=== PATIENT | female | born 1930 | race Caucasian/White ===

== ENCOUNTER 2018-05-17 20:33 | Observation (INO) | payer OTHER ==
[~2018-05-17] VITALS: Ht 152.4 cm; Wt 49.4 kg
[~2018-05-17 20:33] MED LIST: FENO160T13 PO; HYDR25TA6 GTB; LISI10TA2 PO; [UNRECOGNIZED DRUG - OTHER] PO
[2018-05-18] VITALS (7 sets, daily range): BP systolic 103–170; BP diastolic 49–75; PULSE 67–95; RESP 18–20; Ht 152.4 cm; Wt 49.4 kg
[2018-05-18] MEDS ORDERED: SOD CHLORIDE 0.9% 1,000 ML IV STA (00:16)
[2018-05-18] MEDS ORDERED: MECLIZINE 12.5 MG TAB PO ONE (01:30)
[2018-05-18] MEDS ORDERED: ONDANSETRON 4 MG INJ IV PRN ×2 (02:30→03:00)
[2018-05-18] MEDS ORDERED: ACETAMINOPHEN 325 MG TAB PO PRN ×2 (02:30→03:00)
--- NOTE | 2018-05-18 02:35 | ERD ---
ER Documentation Chief Complaint Chief Complaint ANXIETY, DIZZINESS X'S 1 DAY HPI This is an 87-year-old female with a history of hypertension who presents the emergency room today for evaluation of multiple symptoms including heart palpitations, generalized weakness, dizziness, nausea for 1 days duration. The patient denies any shortness of breath currently but states that she was feeling slightly short of breath earlier today. The patient denies any abdominal pain denies any sick contacts and came to the ER for evaluation of her symptoms ROS All systems reviewed and are negative except as per history of present illness. Medications Home Meds Reported Medications Hydrochlorothiazide* (Hydrochlorothiazide*) 25 Mg Tab, 25 MG GTB, TAB 06/10/13 Fenofibrate, Micronized* (Fenofibrate*) 160 Mg Tablet, 160 MG PO 06/10/13 [Fludxetine ] No Conflict Check, 20 PO 06/10/13 Lisinopril* (Lisinopril*) 10 Mg Tablet, 10 MG PO DAILY 06/10/13 Allergies Allergies: Coded Allergies: No Known Allergy (Unverified , 06/10/13) PMhx/Soc Medical and Surgical Hx: pt denies Surgical Hx History of Surgery: No Anesthesia Reaction: No Hx Neurological Disorder: No Hx Respiratory Disorders: No Hx Cardiac Disorders: Yes (HIGH CHOLESTEROL ;HTN) Hx Psychiatric Problems: No Hx Miscellaneous Medical Probl: No Hx Alcohol Use: No Hx Substance Use: No Hx Tobacco Use: No Smoking Status: Never smoker Physical Exam Vitals Vital Signs Date Temp Pulse Resp B/P (MAP) Pulse Ox O2 O2 Flow FiO2 Time Delivery Rate 05/18/18 97.4 97 16 183/68 99 Room Air 00:02 (106) 05/17/18 97.6 120 18 187/79 95 20:34 (115) Physical Exam INITIAL VITAL SIGNS: Reviewed by me GENERAL: The patient is well developed and appropriate for usual state of health in no apparent distress HEENT: Pupils equal, round, and reactive to light. EOMI. There is no scleral icterus. NECK: C-spine is soft and supple, there is no meningismus. There is no cervical lymphadenopathy. LUNGS: Clear to auscultation bilaterally. There are no rales, wheezes or rhonchi. HEART: Regular rate and rhythm, no murmurs, clicks, rubs or gallops. ABDOMEN: Soft, non-tender, non-distended. There are bowel sounds in all four quadrants. No rebound or guarding. EXTREMITIES: There is no peripheral cyanosis or edema. No focal swelling or erythema. NEUROLOGICAL: The patient moves all four extremities with 5/5 strength. Cranial nerves II - XII are intact. Normal gait. Alert and oriented SKIN: There is no apparent rash or petechiae. HEME/LYMPHATIC: There is no evidence of excessive bruising or lymphedema. PSYCHIATRIC: The patient does not appear anxious or depressed. Result Diagram: 05/18/183905/18/1839 Results 24 hrs Laboratory Tests Test 05/18/18 00:40 White Blood Count 9.1 10^3/ul Red Blood Count 4.42 10^6/ul Hemoglobin 13.5 g/dl Hematocrit 40.8 % Mean Corpuscular Volume 92.3 fl Mean Corpuscular Hemoglobin 30.5 pg Mean Corpuscular Hemoglobin Concent 33.1 g/dl Red Cell Distribution Width 13.3 % Platelet Count 269 10^3/UL Mean Platelet Volume 10.2 fl Immature Granulocytes % 0.200 % Neutrophils % 54.1 % Lymphocytes % 33.9 % Monocytes % 11.2 % Eosinophils % 0.3 % Basophils % 0.3 % Nucleated Red Blood Cells % 0.0 /100WBC Immature Granulocytes # 0.020 10^3/ul Neutrophils # 4.9 10^3/ul Lymphocytes # 3.1 10^3/ul Monocytes # 1.0 10^3/ul Eosinophils # 0.0 10^3/ul Basophils # 0.0 10^3/ul Nucleated Red Blood Cells # 0.0 10^3/ul Sodium Level 138 mmol/L Potassium Level 3.9 mmol/L Chloride Level 98 mmol/L Carbon Dioxide Level 28 mmol/L Anion Gap 12 Blood Urea Nitrogen 16 mg/dl Creatinine 0.49 mg/dl Est Glomerular Filtrat Rate mL/min mL/min Glucose Level 107 mg/dl Calcium Level 10.2 mg/dl Troponin I 0.020 ng/ml Current Medications Medications Dose Sig/Hunter Start Time Status Last (Trade) Ordered Route PRN Stop Time Admin Dose Reason Admin Sodium 1,000 ml @ Q1H STAT 05/18/18 DC 05/18/18 Chloride 1,000 mls/hr IV 00:16 00:48 05/18/18 01:15 Meclizine 25 mg ONCE ONCE 05/18/18 DC 05/18/18 HCl PO 01:30 01:43 (Antivert) 05/18/18 01:31 Ondansetron 4 mg ER BRIDGE 05/18/18 HCl (Zofran PRN IV 02:30 Inj) NAUSEA AND/OR 05/19/18 02:29 VOMITING 650 mg ER BRIDGE 05/18/18 Acetaminophen PRN PO MILD 02:30 (Tylenol PAIN(1-3)OR 05/19/18 02:29 Tab) ELEVATED TEMP Procedures/MDM Chest X-ray 1V Interpreted by me: Soft Tissue: No acute abnormalities Bones: No acute abnormalities Mediastinum/Cardiac Silhouette/Lungs: [No acute abnormalities] CT brain without: No acute process EKG: Rate/Rhythm: [Normal Sinus Rhythm] QRS, ST, T-waves: Nonspecific ST abnormalities in the anterior lateral leads Impression: [Normal sinus rhythm with nonspecific ST abnormalities in the anterior leads, prolonged EKG This 87-year-old female presents to the ER for evaluation of multiple complaints including weakness, anxiety, heart palpitations. On my exam the patient is afebrile and nontoxic-appearing. Her EKG does show nonspecific ST abnormalities in the anterior lateral leads. CT the brain is normal. Chest x-ray is clear at this time and the first troponin is negative. Given this patient's age and symptoms this patient will benefit from inpatient hospitalization for serial troponins and possible cardiology consult. The patient will be placed in for admission at this time and will be placed on the telemetry floor under observation status. I have spoken to Dr. Merino who agrees to evaluate this patient on the floor Departure Diagnosis: Primary Impression: Anxiety Additional Impressions: Heart palpitations Dizziness Condition: CORBIN Kathleen DO May 18, 2018 02:35
[2018-05-18] MEDS ORDERED: MAGNESIUM HYDROXIDE 30ML CUP PO PRN (03:00)
[2018-05-18] MEDS ORDERED: LORAZEPAM 0.5 MG TAB PO PRN (03:00)
[2018-05-18] MEDS ORDERED: MECLIZINE 25 MG TAB PO PRN (03:00)
[2018-05-18] MEDS ORDERED: DOCUSATE SODIUM 100 MG CAP PO PRN (03:00)
[2018-05-18] MEDS ORDERED: BISACODYL 10 MG SUPP PR PRN (03:00)
[2018-05-18] MEDS ORDERED: NITROGLYCERIN (SL) 0.4 MG TAB SL PRN (03:00)
[2018-05-18] MEDS ORDERED: NACL 0.9% 3 ML SYG IV SCH (03:00)
[2018-05-18] MEDS ORDERED: hydrALAzine 20 MG INJ IV PRN (03:00)
[2018-05-18] MEDS ORDERED: SOD CHLORIDE 0.9% 100 ML ONE (03:28)
[2018-05-18] MEDS ORDERED: IOHEXOL 100 ML ONE (03:28)
[2018-05-18] MEDS: METOPROLOL 25 MG TAB PO SCH ×2 (03:50→08:17)
--- NOTE | 2018-05-18 04:19 | NUR ---
Patient Admitted Pt arrived to 6W Tele from ED. Pt A&O x 4. VSS, orthostatic vitals recorded. Tele monitor on, sinus rhythm on the monitor. Pt denies pain; no s/s of distress, resting in bed comfortably. Skin intact; pt refuses pictures. Fall precautions initiated with bed alarm on; fall wrist band applied, 'Walk With Me' Letter reviewed. Patient oriented to room, call light within reach, hourly rounding standards explained; pt instructed to call for assistance as needed. Pt clean and dry; all needs and concerns attended to. Admitting orders input by Dr. Merino. Will continue to monitor and assess.
--- NOTE | 2018-05-18 04:45 | NUR ---
Called CT and spoke to Cristhian regarding patient's STAT CT chest angio test. He stated that he would call transport and bring the patient down. Addendum: 05/18/18 at 0558 by JAMAR ARREAGA RN Called Cristhian in CT X [address] procedure. Cristhian stated that they received an ER patient and that transport was currently busy. Informed him that the procedure will now have to be held until after 7a, as the nurse charge rn has to give change of shift report.
--- NOTE | 2018-05-18 08:30 | NUR ---
PT CAME TO CT FOR CTA AND SAID SHE FELT NAUSEOUS. PT STATED THAT SHE WAS EATING HER BREAKFAST TRAY WHEN TRANSPORT CAME UP TO BRING TO DEPT. CALLED PLATE WORKER HELPER DON, PT SENT BACK TO FLOOR AND TO BE KEPT NPO FOR AT LEAST 3 HOURS. EXPLAINED TO PATIENT THAT SHE IS TO BE KEPT NPO AND WE WILL FIELD ASSESSOR AT LATER TIME. PT WAS AGREEABLE TO RETURN IN A FEW HOURS. ASKED IF CURRENTLY HAD SOB OR CHEST PAIN. PT STATED NO TO BOTH QUESTIONS.
[2018-05-18] MEDS ORDERED: LISINOPRIL 10 MG TAB PO SCH (09:00)
[2018-05-18] MEDS ORDERED: ASPIRIN 81 MG TAB PO SCH (09:00)
[2018-05-18] MEDS ORDERED: FAMOTIDINE 20 MG TAB PO SCH (09:00)
[2018-05-18] MEDS ORDERED: MECLIZINE 25 MG TAB PO SCH (10:00)
--- NOTE | 2018-05-18 12:10 | NUR ---
SENT TRANSPORT TO [facility] [place] TO BRING PT TO CT. PT REFUSED SCAN AND TOLD TRANSPORTER THAT HER MD SAID SHE DID NOT NEED EXAM AND THAT SHE WILL BE DISCHARGED TODAY. HOLD EXAM FOR NOW UNTIL UPDATE OR CANCELLED.
--- NOTE | 2018-05-18 12:26 | HP ---
Date/Time of Note Date/Time of Note DATE: 05/18/18 TIME: 12:25 Assessment/Plan VTE Prophylaxis Risk score (from Ns)>0 risk: 2 SCD applied (from Ns): Yes Pharmacological prophylaxis: NA/contraindicated Pharm contraindication: low risk/ambulating Lines/Catheters IV C[facility]ter Type (from [facility] Saline Lock Assessment/Plan Assessment/Plan 87-year-old female with: 1. Dizziness, vertigo, all symptoms consistent mostly with vertigo actually, patient also hypertensive and tachycardic upon arrival. Blood pressure much better control, chest x-ray and EKG within normal. She has refused CT angiogram. No other cardiac symptoms at all, cardiac enzymes negative x2. Third cardiac enzyme pending, discharge home later this afternoon if within normal. Meclizine as needed. Patient is advised to stay hydrated also. 2. Hypertension, significantly hypertensive on arrival, agree with lisinopril 20 mg daily, metoprolol has been added 25 mg p.o. twice daily. Patient is to follow-up with her primary care physician for further titration of blood pressure medication if needed. 3. Hyperlipidemia: Continue current medication Prophylaxis: Patient ambulatory and Pepcid for GI prophylaxis. Disposition: Patient was admitted on telemetry observation overnight, discharge planning home if third set of cardiac enzymes within normal. Follow-up with primary care physician next week. Result Diagram: 05/18/18 0040 05/18/18 0527 Results 24hrs Laboratory Tests Test 05/18/18 00:10 05/18/18 00:40 05/18/18 05:27 Thyroid Stimulating Hormone (TSH) 1.290 Free Thyroxine 1.45 White Blood Count 9.1 Red Blood Count 4.42 Hemoglobin 13.5 Hematocrit 40.8 Mean Corpuscular Volume 92.3 Mean Corpuscular Hemoglobin 30.5 Mean Corpuscular Hemoglobin Concent 33.1 Red Cell Distribution Width 13.3 Platelet Count 269 Mean Platelet Volume 10.2 Immature Granulocytes % 0.200 Neutrophils % 54.1 Lymphocytes % 33.9 Monocytes % 11.2 H Eosinophils % 0.3 Basophils % 0.3 Nucleated Red Blood Cells % 0.0 Immature Granulocytes # 0.020 Neutrophils # 4.9 Lymphocytes # 3.1 H Monocytes # 1.0 H Eosinophils # 0.0 Basophils # 0.0 Nucleated Red Blood Cells # 0.0 Sodium Level 138 138 Potassium Level 3.9 3.9 Chloride Level 98 102 Carbon Dioxide Level 28 27 Anion Gap 12 9 Blood Urea Nitrogen 16 14 Creatinine 0.49 0.50 Est Glomerular Filtrat Rate mL/min Glucose Level 107 115 Calcium Level 10.2 9.4 Troponin I 0.020 0.022 Total Bilirubin 0.3 Direct Bilirubin 0.00 Indirect Bilirubin 0.3 Aspartate Amino Transf (AST/SGOT) 35 Alanine Aminotransferase (ALT/SGPT) 16 Alkaline Phosphatase 39 L Creatine Kinase 157 Creatine Kinase Index 1.4 Creatinine Kinase MB (Mass) 2.18 Total Protein 6.7 Albumin 3.8 Globulin 2.90 Albumin/Globulin Ratio 1.31 Triglycerides Level 101 Cholesterol Level 179 LDL Cholesterol, Calculated 104 HDL Cholesterol 55 Cholesterol/HDL Ratio 3.2 HPI/ROS Admit Date/Time Admit Date/Time May 18, 2018 at 02:28 Hx of Present Illness Chief complaint: Dizziness, palpitations History of presenting illness: This is a 87-year-old female with history of hypertension, hyperlipidemia, previous episode of BPV few years ago who presented the emergency department with dizziness and was found to be hypertensive and tachycardic, sinus tachycardia. Patient reports that yesterday evening, she had an acute onset of dizziness, per description sounds more like vertigo as it was worse with movement and patient also had nausea while being transported via gurney which is more consistent with motion sickness/vertigo. She denies any chest pain, vomiting, diaphoresis, shortness of breath. Patient denies any previous cardiac history. She is compliant with her lisinopril which she clarified is taking 20 mg daily. Cardiac enzymes are negative x2, third 1 is pending. Orthostatics are negative, blood pressure is much better controlled now. If third cardiac enzymes remained normal, she will be discharged home with meclizine as needed for vertigo and metoprolol added for blood pressure control. ROS Constitutional: no complaints, improved Eyes: no complaints Cardiovascular: other (Palpitations) Gastrointestinal: no complaints Genitourinary: no complaints Musculoskeletal: no complaints Skin: no complaints Neurologic: dizziness, other (vertigo ) Endocrine: no complaints Lymphatic: no complaints Immunologic: no complaints PMH/Family/Social Past Medical History Hypertension Hyperlipidemia Benign positional vertigo Medications Current Medications Ondansetron HCl (Zofran Inj) 4 mg ER BRIDGE PRN IV NAUSEA AND/OR VOMITING; Start 05/18/18 at 02:30; Stop 05/19/18 at 02:29 Acetaminophen (Tylenol Tab) 650 mg ER BRIDGE PRN PO MILD PAIN(1-3)OR ELEVATED TEMP; Start 05/18/18 at 02:30; Stop 05/19/18 at 02:29 Lisinopril (Zestril) 20 mg DAILY PO Last administered on 05/18/18at 08:17; Admin Dose 20 MG; Start 05/18/18 at 09:00 Metoprolol Tartrate (Lopressor) 25 mg BID PO Last administered on 05/18/18at 08:17; Admin Dose 25 MG; Start 05/18/18 at 02:30 IV Flush (NS 3 ml) 3 ml PER PROTOCOL IV ; Start 05/18/18 at 03:00 Lorazepam (Ativan) 0.5 mg Q8H PRN PO ANXIETY; Start 05/18/18 at 03:00 Ondansetron HCl (Zofran Inj) 4 mg Q6H PRN IV NAUSEA AND/OR VOMITING Last administered on 05/18/18at 08:52; Admin Dose 4 MG; Start 05/18/18 at 03:00 Aspirin (Aspirin) 81 mg DAILY PO Last administered on 05/18/18at 08:16; Admin Dose 81 MG; Start 05/18/18 at 09:00 Nitroglycerin (Nitroglycerin (Sl Tab) 0.4 Mg) 1 tab Q5M PRN SL CHEST PAIN; Start 05/18/18 at 03:00 Acetaminophen (Tylenol Tab) 650 mg Q6H PRN PO PAIN LEVEL 1-3 OR FEVER; Start 05/18/18 at 03:00 Docusate Sodium (Colace) 100 mg Q12H PRN PO CONSTIPATION; Start 05/18/18 at 03:00 Magnesium Hydroxide (Milk Of Mag) 30 ml DAILY PRN PO CONSTIPATION; Start 05/18/18 at 03:00 Bisacodyl (Dulcolax Supp) 10 mg DAILY PRN AR CONSTIPATION; Start 05/18/18 at 03:00 Famotidine (Pepcid) 20 mg Q12 PO Last administered on 05/18/18at 08:16; Admin Dose 20 MG; Start 05/18/18 at 09:00 Hydralazine HCl (Apresoline) 10 mg Q8H PRN IV ELEVATED BLOOD PRESSURE; Start 05/18/18 at 03:00 Meclizine HCl (Antivert) 25 mg BID PO Last administered on 05/18/18at 09:43; Admin Dose 25 MG; Start 05/18/18 at 10:00 Coded Allergies: No Known Allergy (Unverified , 06/10/13) Past Surgical History Status post cholecystectomy remotely Status post hysterectomy with bilateral oophorectomy remotely Family History Significant Family History: no pertinent family hx Social History Alcohol Use: none Smoking Status: Former smoker Drug Use: none Exam/Review of Systems Vital Signs Vitals Vital Signs Date Temp Pulse Resp B/P (MAP) Pulse Ox O2 O2 Flow FiO2 Time Delivery Rate 05/18/18 69 12:22 05/18/18 98.3 18 120/58 99 11:53 (78) 05/18/18 Room Air 03:34 Intake and Output 05/17/18 05/17/18 05/18/18 1414:59 22:59 06:59 IntakeIntake Total 150 ml BalanceBalance 150 ml Exam Constitutional: alert, oriented, well developed Respiratory: clear to auscultation, normal air movement Cardiovascular: regular rate and rhythm, nl pulses Gastrointestinal: soft, non-tender Musculoskeletal: nl extremities to inspection, nl gait and stance Extremities: normal pulses Neurological: SU[employer] II-XII intact, nl mental status, nl speech, nl strength Additional Comments EKG: Sinus rhythm, no ST or T wave abnormalities seen. PROCEDURE: Portable chest x-ray. CLINICAL INDICATION: Chest pain. TECHNIQUE: Portable AP view of the chest. COMPARISON: 06/10/2013. FINDINGS: No pulmonary edema or conolidation is identified. The cardiac silhouette is magnified. There are aortic calcifications. No pleural effusion is seen. There is no pneumothorax. IMPRESSION: No evidence of acute cardiopulmonary disease. Aortic atherosclerosis. RPTAT: HTAR .Moe Venegas MD, Date Time Electronically viewed and signed by .Moe Venegas MD, on 05/18/2018 01:19 .R/ PROCEDURE: CT BRAIN WITHOUT CONTRAST CLINICAL INDICATION: 87-year-old female with altered mental status. TECHNIQUE: The study was performed utilizing [employer] VCT 64-slice CT scanner. Direct axial sections were obtained from the foramen magnum to the vertex without the use of intravenous contrast material. Sagittal and coronal reformations were obtained. One or more the following dose reduction techniques were utilized: automated exposure control, adjustment of the mA and/or kV according to patient's size and/or use of iterative reconstruction technique. DICOM images are available. The images were viewed on a PACS workstation. CTD/vol = 36.5 mGy; Total Exam DLP = 634.2 mGy-cm. COMPARISON: CT brain June 10, 2013. FINDINGS: There is moderate degree of diffuse cortical and central atrophy with compensatory ventricular enlargement. There is no evidence for mass effect or midline shift. There are periventricular areas of decreased density consistent with microangiopathic ischemic changes. There is no evidence for acute intra or extra-axial blood. Calcifications are seen within the intracranial carotid arteries bilaterally. The bony calvarium is intact. The partially visualized paranasal sinuses and mastoid air cells are without significant abnormal soft tissue. IMPRESSION: 1. Moderate diffuse atrophy. 2. Microangiopathic ischemic changes. 3. Vascular calcifications. .Abdi Temple MD, MD Date Time Electronically viewed and signed by .Abdi Temple MD, on 05/18/2018 01:42 MARIELLE CALDERON May 18, 2018 12:26
--- NOTE | 2018-05-18 12:27 | NUR ---
Pt refused CTA, risk of refusing diagnostic test is given to the pt. Pt verbalized understanding. Dr Merino is notified. will monitor.
[2018-05-18] MEDS ORDERED: LISI-471 PO (12:35)
--- NOTE | 2018-05-18 12:48 | PDOCDIS ---
Discharge Instructions CONDITION [id number] Patient Condition: [id number] Stable HOME CARE INSTRUCTIONS: [id number] Diet Instructions: [id number] Low Fat /Cholesterol ACTIVITY: [id number] Activity Restrictions: [id number] Slowly Increase Activity FOLLOW UP/APPOINTMENTS Follow-up Plan Follow-up with primary care physician within 1 week. MARIELLE CALDERON May 18, 2018 12:48
[2018-05-18] MEDS ORDERED: METO25TA4 PO (12:49)
--- NOTE | 2018-05-18 15:48 | NUR ---
DC instructions are given to the pt and pt's friend who will be helping the pt with medication at home. Pt and the friend verbalized understanding of given instructions. Pt received her prescription for new blood pressure medication, Talked to Dr Merino and gave pt's preferred Pharmacy information for necessary prescription. IV access was removed, pt left the unit via wheelchair accompanied with friend.
--- NOTE | 2018-05-19 15:18 | RADRPT ---
Echocardiogram Report Patient Name: ADRYANSeptember Gender: Female Date: 1930 Study Date: 18-May-2018 Smog Technician: Dale Sanchez RDCS Location: 616-A Ref. Physician: SUDHA CALDERON Quality: Technically Difficult Study Procedures: Transthoracic echocardiogram with complete 2D, M-Mode, and doppler examination. Indications: Evaluate Left Ventricular function. 2D/M Mode Doppler Measurement Value Normal Ranges Measurement Value Normal Ranges LVIDd 2D 2.4 3.5 - 5.6 cm AV Peak Jw 1.4 m/sec LVIDs 2D 1.6 2.1 - 4.1 cm AV Peak PG 8.0 mmHg LVPWd 2D 0.7 0.6 - 1.1 cm LVOT Mean Jw 0.8 m/sec IVSd 2D 0.9 0.6 - 1.1 cm LVOT Mean PG 3.0 mmHg AoR Diam 2D 2.0 2.0 - 3.7 cm LVOT Peak Jw 1.2 m/sec LA/Ao 2D 2 0 - 1 LVOT Peak PG 6.0 mmHg LA Dimen 2D 3.0 2.3 - 4.0 cm MV E Peak Jw 0.5 m/sec MV A Peak Jw 1.1 m/sec MV E/A 0.4 MV Decel Time 201 msec Lat E` Jw 0.1 m/sec Lateral E/E` 7.9 MV E/A 0.4 Findings Left Ventricle: Overall, normal left ventricular systolic function. Not all segments visualized. Normal left ventricular cavity size. Normal left ventricular wall thickness. Ejection fraction is visually estimated at 60 %. Tissue Doppler/Mitral Doppler indices are consistent with impaired relaxation (Stage I diastolic dysfunction). Right Ventricle: Normal right ventricular size. Normal right ventricular systolic function. Left Atrium: The left atrium is normal in size. Right Atrium: The right atrium is normal in size. Mitral Valve: Normal appearance of the mitral valve. Trace mitral regurgitation. Aortic Valve: No significant aortic stenosis or insufficiency. Aortic valve not well visualized. Tricuspid Valve: Normal appearance of the tricuspid valve. There is mild tricuspid regurgitation. Pulmonic Valve: Pulmonic valve not well visualized. Pericardium: Normal pericardium with no significant pericardial effusion. Aorta: Normal aortic root. IVC: Normal size and normal respiratory collapse consistent with normal right atrial pressure. Conclusions Overall, normal left ventricular systolic function. Not all segments visualized. Normal left ventricular cavity size. Normal left ventricular wall thickness. Ejection fraction is visually estimated at 60 %. Tissue Doppler/Mitral Doppler indices are consistent with impaired relaxation (Stage I diastolic dysfunction). Normal right ventricular size. Normal right ventricular systolic function. The left atrium is normal in size. The right atrium is normal in size. There is mild tricuspid regurgitation. No significant aortic stenosis or insufficiency. Trace mitral regurgitation. Normal pericardium with no significant pericardial effusion. Electronically Signed By: Klever Irene 19-May-2018 15:17:31 -0800 Patient Name: СВЕТЛАНА CORNELIUS Study Date: 18-May-2018 [id number]
== END 2018-05-18 16:05 | disposition home or self-care (01) ==
LOC: E/R 20:33 → 6WM 05-18 02:28
PROVIDERS: ADMIT Internal Medicine; ATTEND Internal Medicine
DX: R53.1 Weakness (principal); F41.9 Anxiety disorder, unspecified; I10 Essential (primary) hypertension; E78.5 Hyperlipidemia, unspecified; R00.2 Palpitations
CPT/HCPCS: 36415; 70450; 71045; 80048; 80053; 80061; 82550; 82553; 84439; 84443; 84484; 85025; 93005; 93306; 96360; 96361; 99285; G0378; J2405; J7030; Q9967

== ENCOUNTER 2018-08-22 18:48 | Emergency (ER) | payer OTHER ==
[~2018-08-22] VITALS: Ht 152.4 cm; Wt 49.0 kg
[~2018-08-22 18:48] MED LIST changes: -HYDR25TA6 GTB; +LISI-471 PO; -LISI10TA2 PO; +METO25TA4 PO
[2018-08-22 18:53] VITALS: Ht 152.4 cm; Wt 49.0 kg
[2018-08-22] MEDS ORDERED: SOD CHLORIDE 0.9% 1,000 ML IV STA (18:55)
--- NOTE | 2018-08-22 20:11 | ERD ---
ER Documentation Chief Complaint Chief Complaint weak/dizzy increasing in severity x 3 days. no pain. HPI This is an 87-year-old female with past medical history of hypertension that presents to the emergency department with weakness and dizziness for the past 3 days. The patient indicates the dizziness has been intermittent. She indicates the dizziness is worse when she is standing and better when she lies supine. She does not complain of headache. She had no changes in vision. She said no fevers or shaking or chills. She denies any chest pain and no shortness of breath at rest or exertion. She indicates that the dizziness sniffily worsened just prior to arrival where she felt as though she was going to pass out. She however denies any complete transient loss of consciousness. She states she is never had any similar symptoms in the past. ROS All systems reviewed and are negative except as per history of present illness. Medications Home Meds Active Scripts Cephalexin* (Keflex*) 500 Mg Capsule, 500 MG PO QID for 10 Days, CAP Prov:ELMER MENDIOLA MD 08/22/18 Meclizine Hcl* (Antivert*) 12.5 Mg Tab, 12.5 MG PO Q6H PRN for DIZZINESS, #20 TAB Prov:ELMER MENDIOLA MD 08/22/18 Reported Medications Fluoxetine Hcl* (Fluoxetine Hcl*) 20 Mg Capsule, 20 MG PO DAILY, CAP 08/22/18 Fenofibrate, Micronized* (Fenofibrate*) 160 Mg Tablet, 160 MG PO DAILY, TAB 08/22/18 Lisinopril* (Lisinopril*) 20 Mg Tablet, 20 MG PO DAILY, #30 TAB 08/22/18 Discontinued Reported Medications Lisinopril* (Lisinopril*) 20 Mg Tablet, 20 MG PO DAILY, #30 TAB 05/18/18 Fenofibrate, Micronized* (Fenofibrate*) 160 Mg Tablet, 160 MG PO 06/10/13 [Fludxetine ] No Conflict Check, 20 PO 06/10/13 Discontinued Scripts Metoprolol Tartrate* (Lopressor*) 25 Mg Tablet, 25 MG PO BID, #60 TAB 3 Refills Prov:MARIELLE CALDERON F 05/18/18 Allergies Allergies: Coded Allergies: No Known Allergy (Unverified , 08/22/18) PMhx/Soc History of Surgery: No (Hysterectomy, Cholecystectomy, Appendectomy) Anesthesia Reaction: No Hx Neurological Disorder: No Hx Respiratory Disorders: No Hx Cardiac Disorders: Yes (HTN) Hx Psychiatric Problems: Yes (Depression) Hx Miscellaneous Medical Probl: No Hx Alcohol Use: No Hx Substance Use: No Hx Tobacco Use: No Smoking Status: Never smoker Physical Exam Vitals Vital Signs Date Temp Pulse Resp B/P (MAP) Pulse Ox O2 O2 Flow FiO2 Time Delivery Rate 08/22/18 95 17 120/86 98 Room Air 22:26 (97) 08/22/18 105 17 154/55 96 Room Air 19:59 (88) 95 107/73 (84) 93 121/99 (106) 08/22/18 98.8 98 18 168/74 99 18:53 (105) Physical Exam Constitutional:Well-developed. Well-nourished. HEENT:Normocephalic. Atraumatic.Pupils were equal round reactive to light. Dry mucous membranes.No tonsillar exudates. Neck: No nuchal rigidity. No lymphadenopathy. No posterior cervical spine tenderness or step-offs. Respiratory: Not using accessory muscles of respiration.Lungs were clear to auscultation bilaterally. No rhonchi. No rales. No wheezing. Cardiovascular: Regular rate regular rhythm.No murmurs. No rubs were apprecia robert.S1, S2 normal. Distal pulses are palpable 2+ bilaterally. GI: Abdomen was soft. Nontender. Non Distended. No pulsatile abdominal masses or bruits. No rebound. No guarding. Bowel sounds were present and normal. Muscle skeletal: Full range of motion of both the upper and lower extremities bilaterally.Normal muscle tone.No assymetrical calf tenderness or swelling. Skin: No petechia, no purpura. No lesions on the palms or the soles of the feet. No maculopapular rash. NEURO: Patient was alert, awake, orientated x3.No facial droop. Gait observed and normal with no ataxia.Speech had regular rate and rhythm. No focal neurological deficits. No nystagmus Result Diagram: 08/22/18192508/22/181925 Results 24 hrs Laboratory Tests Test 08/22/18 19:26 White Blood Count 7.0 10^3/ul Red Blood Count 4.04 10^6/ul Hemoglobin 12.4 g/dl Hematocrit 37.9 % Mean Corpuscular Volume 93.8 fl Mean Corpuscular Hemoglobin 30.7 pg Mean Corpuscular Hemoglobin Concent 32.7 g/dl Red Cell Distribution Width 13.5 % Platelet Count 248 10^3/UL Mean Platelet Volume 10.2 fl Immature Granulocytes % 0.300 % Neutrophils % 63.3 % Lymphocytes % 22.2 % Monocytes % 13.4 % Eosinophils % 0.4 % Basophils % 0.4 % Nucleated Red Blood Cells % 0.0 /100WBC Immature Granulocytes # 0.020 10^3/ul Neutrophils # 4.5 10^3/ul Lymphocytes # 1.6 10^3/ul Monocytes # 0.9 10^3/ul Eosinophils # 0.0 10^3/ul Basophils # 0.0 10^3/ul Nucleated Red Blood Cells # 0.0 10^3/ul Prothrombin Time 12.5 Sec Prothrombin Time Ratio 1.0 INR International Normalized Ratio 0.92 Activated Partial Thromboplast Time 26.8 Sec Urine Color STRAW Urine Clarity CLEAR Urine pH 7.0 Urine Specific [place] 1.008 Urine Ketones NEGATIVE mg/dL Urine Nitrite NEGATIVE mg/dL Urine Bilirubin NEGATIVE mg/dL Urine Urobilinogen NEGATIVE mg/dL Urine Leukocyte Esterase 1+ Eliot/ul Urine Microscopic RBC 0 /HPF Urine Microscopic WBC 20 /HPF Urine Squamous Epithelial Cells FEW /HPF Urine Bacteria FEW /HPF Urine Hemoglobin NEGATIVE mg/dL Urine Glucose NEGATIVE mg/dL Urine Total Protein NEGATIVE mg/dl Sodium Level 140 mmol/L Potassium Level 4.5 mmol/L Chloride Level 103 mmol/L Carbon Dioxide Level 28 mmol/L Anion Gap 9 Blood Urea Nitrogen 21 mg/dl Creatinine 0.55 mg/dl Est Glomerular Filtrat Rate mL/min mL/min Glucose Level 109 mg/dl Calcium Level 11.0 mg/dl Total Bilirubin 0.1 mg/dl Direct Bilirubin 0.00 mg/dl Indirect Bilirubin 0.1 mg/dl Aspartate Amino Transf (AST/SGOT) 25 IU/L Alanine Aminotransferase (ALT/SGPT) 12 IU/L Alkaline Phosphatase 33 IU/L Troponin I < 0.012 ng/ml B-Type Natriuretic Peptide 733 PG/ML Total Protein 7.5 g/dl Albumin 4.3 g/dl Globulin 3.20 g/dl Albumin/Globulin Ratio 1.34 Current Medications Medications Dose Sig/Hunter Start Time Status Last (Trade) Ordered Route PRN Stop Time Admin Dose Reason Admin Sodium 1,000 ml @ Q1H STAT 08/22/18 DC 08/22/18 Chloride 1,000 mls/hr IV 18:55 19:40 08/22/18 19:54 Meclizine 25 mg ONCE ONCE 08/22/18 DC 08/22/18 HCl PO 20:30 20:27 (Antivert) 08/22/18 20:31 Ceftriaxone 50 ml @ ONCE ONCE 08/22/18 DC 08/22/18 Sodium 100 mls/hr IVPB 21:30 21:33 08/22/18 21:59 Procedures/MDM This patient was seen and evaluated by myself. The patient presented to the emergency department complaining of dizziness. My differential diagnosis included but was not limited to hypovolemia, myocardial infarction, pulmonary embolism, hypoglycemia, hypoxia, anemia, vasovagal episode, hypothyroidism, anxiety, peripheral or central vertigo. The patient was placed on a pvc monitor, continuous pulse oximetry and IV access established by nursing staff. The patient was given a liter bolus of normal saline as she did show signs of clinical dehydration. The patient also had a urinary tract infection was given ceftriaxone. I obtained a CT scan the patient said there is no intracerebral hemorrhage mass-effect or midline shift. The patient no severe electrolyte abnormalities. 12 Lead EKG tracing ordered and reviewed by myself showed: Normal sinus rhythm of 95 bpm and no arrhythmia. MD interval normal. QRS duration normal. No ST segment elevation No ST segment depression. No changes consistent with acute ischemia. As obtained a chest radiograph which showed no evidence of infiltrates. Observation Note: Time: 4 hours Family Hx: No Hypertension Evaluation: Multiple exams showed improving symptoms and no evidence of worsening of her symptoms. She had received Antivert and see if this improved her dizziness as while she was in the emergency department she did feel the sensation as though the room was spinning around her. Again the patient did not have any nystagmus. I spoke with the patient in length and offered her a trial of admission to the hospital but she stated she would prefer to be discharged. I spoke with the [place] physician Dr. Russell who indicated he would arrange for outpatient follow-up for the patient. She was sent home with Keflex. Her orthostatics were negative. Departure Diagnosis: Primary Impression: Dizziness Additional Impression: Urinary tract infection Urinary tract infection type: acute cystitis Hematuria presence: without hematuria Qualified Codes: N30.00 - Acute cystitis without hematuria Condition: Serious ELMER MENDIOLA MD Aug 22, 2018 20:11
[2018-08-22] MEDS ORDERED: MECLIZINE 12.5 MG TAB PO ONE (20:30)
[2018-08-22] MEDS ORDERED: LISI-471 PO (20:42)
[2018-08-22] MEDS ORDERED: FENO160T13 PO (20:43)
[2018-08-22] MEDS ORDERED: FLUO20CA22 PO (20:44)
[2018-08-22] MEDS ORDERED: CEFTRIAXONE 1 GM/50 ML (PMX) 50 ML IVPB ONE (21:30)
[2018-08-22] MEDS ORDERED: CEPH-443 PO (22:19)
[2018-08-22] MEDS ORDERED: MECL12.574 PO (22:19)
[2018-08-22 22:26] VITALS: BP 120/86; PULSE 95; RESP 17
== END 2018-08-22 22:28 | disposition home or self-care (01) ==
LOC: E/R 18:48
DX: R42 Dizziness and giddiness (principal); N30.00 Acute cystitis without hematuria; I10 Essential (primary) hypertension; R07.9 Chest pain, unspecified
CPT/HCPCS: 70450; 71045; 80053; 81001; 83880; 84484; 85025; 85610; 85730; 87040; 87086; 93005; 96374; 99285; J0696; J7030

== ENCOUNTER 2018-09-08 09:26 | Emergency (ER) | payer OTHER ==
[~2018-09-08] VITALS: Ht 152.4 cm; Wt 49.1 kg
[~2018-09-08 09:26] MED LIST changes: +CEPH-443 PO; +FLUO20CA22 PO; +MECL12.574 PO; -METO25TA4 PO; -[UNRECOGNIZED DRUG - OTHER] PO
[2018-09-08 09:36] VITALS: Ht 152.4 cm; Wt 49.1 kg
[2018-09-08] MEDS ORDERED: MECLIZINE 12.5 MG TAB PO ONE ×2 (10:00→12:30)
[2018-09-08] MEDS ORDERED: ARIP2TAB9 ORAL (11:02)
[2018-09-08 11:22] VITALS: BP 139/55; PULSE 85; RESP 20
[2018-09-08] MEDS ORDERED: MECL12.574 PO (12:14)
[2018-09-08] MEDS ORDERED: ONDA4TAB14 PO (12:14)
--- NOTE | 2018-09-08 12:25 | ERD ---
ER Documentation Chief Complaint Chief Complaint Pt. ASHLEY FOUNTAIN due to dizziness, acci OD on prozac@11pm, "Roughly 10 tabs" HPI This is a 87-year-old female who said she took about 6-10 extra Prozac last night. She said her Prozac pills are mixed in a bowl with M&Ms and she was eating the candy and the Prozac at the same time. She says she did not realize this until this morning. She is this morning she is having the sensation of the room is spinning that occurs worse when she is moving her head. She has a history of vertigo and this is exactly the same as prior symptoms. No headache no focal neurological complaints of numbness weakness speech change visual change or difficulty swallowing. She has no chest pain or shortness of breath. She said the spinning makes her nauseated but no vomiting ROS All systems reviewed and are negative except as per history of present illness. Medications Home Meds Active Scripts Ondansetron (Ondansetron Odt) 4 Mg Tab.rapdis, 4 MG PO Q6H PRN for NAUSEA AND/OR VOMITING, #10 TAB Prov:HUGH HI DO 09/08/18 Meclizine Hcl* (Antivert*) 12.5 Mg Tab, 25 MG PO Q6H PRN for DIZZINESS, #20 TAB Prov:HUGH HI DO 09/08/18 Reported Medications Aripiprazole (Aripiprazole) 2 Mg Tablet, 1 TAB ORAL DAILY 09/08/18 Fluoxetine Hcl* (Fluoxetine Hcl*) 20 Mg Capsule, 20 MG PO DAILY, CAP 08/22/18 Fenofibrate, Micronized* (Fenofibrate*) 160 Mg Tablet, 160 MG PO DAILY, TAB 08/22/18 Lisinopril* (Lisinopril*) 20 Mg Tablet, 20 MG PO DAILY, #30 TAB 08/22/18 Discontinued Scripts Cephalexin* (Keflex*) 500 Mg Capsule, 500 MG PO QID for 10 Days, CAP Prov:ELMER MENDIOLA MD 08/22/18 Meclizine Hcl* (Antivert*) 12.5 Mg Tab, 12.5 MG PO Q6H PRN for DIZZINESS, #20 TAB Prov:ELMER MENDIOLA MD 08/22/18 Allergies Allergies: Coded Allergies: No Known Allergy (Unverified , 08/22/18) PMhx/Soc History of Surgery: No (Hysterectomy, Cholecystectomy, Appendectomy) Anesthesia Reaction: No Hx Neurological Disorder: No Hx Respiratory Disorders: No Hx Cardiac Disorders: Yes (HTN) Hx Psychiatric Problems: Yes (Depression) Hx Miscellaneous Medical Probl: No Hx Alcohol Use: No Hx Substance Use: No Hx Tobacco Use: No Smoking Status: Never smoker FmHx Family History: No coronary disease Physical Exam Vitals Vital Signs Date Temp Pulse Resp B/P (MAP) Pulse Ox O2 O2 Flow FiO2 Time Delivery Rate 09/08/18 85 20 139/55 97 Room Air 11:22 (83) 09/08/18 97.5 84 20 149/53 97 09:36 (85) Physical Exam Const: Well-developed, well-nourished Head: Atraumatic, normocephalic Eyes: Normal Conjunctiva, PERRLA, EOMI, normal sclera, no nystagmus ENT: Normal External Ears, Nose and Mouth, moist mucus membranes. Neck: Full range of motion. No meningismus, no lymphadenopathy. Resp: Clear to auscultation bilaterally, no wheezing, rhonchi, rales Cardio: Regular rate and rhythm, no murmurs, S1 S2 present Abd: Soft, non tender x 4, non distended. Normal bowel sounds, no guarding or rebound, no pulsitile abdominal masses or bruits Skin: No petechiae or rashes, no ecchymosis , no maculopapular rash Back: No midline or flank tenderness Ext: No cyanosis, or edema, FROM x 4, normal inspection, neurovascularly intact x 4, if she moves her head to the left she gets severe vertigo Neur: Awake and alert, STR 5/5 x 4, sensation intact x 4, no focal findings, cerebellum intact Psych: Normal Mood and Affect Results 24 hrs Current Medications Medications Dose Sig/Hunter Start Time Status Last (Trade) Ordered Route PRN Stop Time Admin Dose Reason Admin Meclizine 25 mg ONCE ONCE 09/08/18 DC 09/08/18 HCl PO 10:00 09:57 (Antivert) 09/08/18 10:01 Meclizine 25 mg ONCE ONCE 09/08/18 HCl PO 12:30 (Antivert) 09/08/18 12:31 Procedures/MDM Patient: ROSS,[birth year]: 1930 Age: 87 Sex: F MR #: [id number] DOS: 09/08/18 0952 Ordering MD: HUGH HI DO Location: E/R Room/Bed: PROCEDURE: CT head without intravenous contrast CLINICAL INDICATION: Headaches. COMPARISON: CT brain 08/22/2018. TECHNIQUE: Axial CT images from skull base to vertex with coronal and sagittal reformats. DOSE: The estimated administered radiation dose was CTDI vol = 38.84 mGy. DLP = 634.23 mGy-cm. One or more of the following dose reduction techniques were used: automated exposure control, adjustment of the mA and/or kV according to patient size, or use of iterative reconstruction. DICOM images are available. FINDINGS: Parenchyma: No acute hemorrhage, large territorial infarction, or mass. The cadet-white matter junctions are intact. No space occupying intra-axial masses or extra-axial fluid collections are present. There is mild parenchymal volume loss. 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 Ventricles: No ventriculomegaly or ventricular effacement. Extra-axial spaces: No herniation or midline shift. Paranasal sinuses: Clear. Mastoids and middle ears: Clear. Visualized orbits: Normal. Vessels: [<There is calcified atherosclerotic arterial plaque identified in the internal carotid arteries.>] Bones: Normal. Extracranial soft tissues: Normal. Additional comment: None. IMPRESSION: 1. No acute intracranial abnormality. 2. 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 3. Mild generalized parenchymal volume loss. 4. Atherosclerosis. RPTAT: HRSR Physician Dorcas Date Time Electronically viewed and signed by Physician Dorcas on 09/08/2018 10:39 RR/ CC: HUGH HI DO [id number] The patient received meclizine and she is feeling better will give another dose. Her symptoms are consistent with a peripheral vertigo. We called poison control and the amount of Prozac she possibly ingested is not going to be a detriment. Discharge home with follow-up. Departure Diagnosis: Primary Impression: Vertigo Additional Impression: Accidental overdose Encounter type: initial encounter Qualified Codes: T50.901A - Poisoning by unspecified drugs, medicaments and biological substances, accidental (unintentional), initial encounter Condition: Stable Patient Instructions: Inner Ear Problems: Causes of Dizziness (Vertigo), Overdose, Accidental (Adult) HUGH HI DO September 08, 2018 12:25
== END 2018-09-08 12:55 | disposition home or self-care (01) ==
LOC: E/R 09:26
DX: T43.211A Poisoning by selective serotonin and norepinephrine reuptake inhibitors, accidental (unintentional), initial encounter (principal); I10 Essential (primary) hypertension
CPT/HCPCS: 70450

== ENCOUNTER 2018-09-08 16:02 | Emergency (ER) | payer OTHER ==
[~2018-09-08] VITALS: Ht 160 cm; Wt 50.0 kg
[~2018-09-08 16:02] MED LIST changes: +ARIP2TAB9 ORAL; +ONDA4TAB14 PO
[2018-09-08 16:39] VITALS: BP 152/67; PULSE 80; RESP 18; Ht 160 cm; Wt 50.0 kg
--- NOTE | 2018-09-08 18:09 | ERD ---
ER Documentation Chief Complaint Chief Complaint generalized weakness , here for placement HPI The patient is a 87-year-old female, return to emergency department for placement because of generalized weakness. She lives alone. She is unable to care for herself. Her physician Dr. Bender already arranged for her admission to a retirement facility ROS All systems reviewed and are negative except as per history of present illness. Medications Home Meds Active Scripts Ondansetron (Ondansetron Odt) 4 Mg Tab.rapdis, 4 MG PO Q6H PRN for NAUSEA AND/OR VOMITING, #10 TAB Prov:HUGH HI DO 09/08/18 Meclizine Hcl* (Antivert*) 12.5 Mg Tab, 25 MG PO Q6H PRN for DIZZINESS, #20 TAB Prov:HUGH HI DO 09/08/18 Reported Medications Aripiprazole (Aripiprazole) 2 Mg Tablet, 1 TAB ORAL DAILY 09/08/18 Fluoxetine Hcl* (Fluoxetine Hcl*) 20 Mg Capsule, 20 MG PO DAILY, CAP 08/22/18 Fenofibrate, Micronized* (Fenofibrate*) 160 Mg Tablet, 160 MG PO DAILY, TAB 08/22/18 Lisinopril* (Lisinopril*) 20 Mg Tablet, 20 MG PO DAILY, #30 TAB 08/22/18 Discontinued Scripts Cephalexin* (Keflex*) 500 Mg Capsule, 500 MG PO QID for 10 Days, CAP Prov:ELMER MENDIOLA MD 08/22/18 Meclizine Hcl* (Antivert*) 12.5 Mg Tab, 12.5 MG PO Q6H PRN for DIZZINESS, #20 TAB Prov:ELMER MENDIOLA MD 08/22/18 Allergies Allergies: Coded Allergies: No Known Allergy (Unverified , 09/08/18) PMhx/Soc History of Surgery: No (Hysterectomy, Cholecystectomy, Appendectomy) Anesthesia Reaction: No Hx Neurological Disorder: No Hx Respiratory Disorders: No Hx Cardiac Disorders: Yes (HTN) Hx Psychiatric Problems: Yes (Depression) Hx Miscellaneous Medical Probl: No Hx Alcohol Use: No Hx Substance Use: No Hx Tobacco Use: No Physical Exam Vitals Vital Signs Date Temp Pulse Resp B/P (MAP) Pulse Ox O2 O2 Flow FiO2 Time Delivery Rate 5/13/19 97.8 80 18 152/67 97 16:39 (95) Physical Exam Const: No acute distress. Head: Atraumatic. Eyes: Normal Conjunctiva. ENT: Normal External Ears, Nose and Mouth. Neck: Full range of motion. No meningismus. Resp: Clear to auscultation bilaterally. Cardio: Regular rate and rhythm. Abd: Soft, non distended, normal bowel sounds, non tender. Skin: No petechiae or rashes. Back: No midline or flank tenderness. Ext: No cyanosis, or edema. Neur: Awake and alert. No focal deficit Psych: Normal Mood and Affect. Procedures/MDM MEDICAL MAKING DECISION: The patient is a 87-year-old female, unable to care for herself, is placed into a retirement facility, arranged by her physician The differential diagnoses considered include but are not limited to depression, anxiety, debility Departure Diagnosis: Primary Impression: Weakness Condition: Stable Comments She will be transferred to skilled facility TAIWO OVIEDO MD September 08, 2018 18:09
== END 2018-09-08 18:36 | disposition home or self-care (01) ==
LOC: E/R 16:02
DX: R53.1 Weakness (principal); I10 Essential (primary) hypertension
CPT/HCPCS: 99283

== ENCOUNTER 2018-10-03 16:29 | Emergency (ER) | payer OTHER ==
[~2018-10-03] VITALS: Ht 152.4 cm; Wt 47.7 kg
[~2018-10-03 16:29] MED LIST changes: -CEPH-443 PO
[2018-10-03 16:38] VITALS: Ht 152.4 cm; Wt 47.7 kg
[2018-10-03] MEDS ORDERED: SOD CHLORIDE 0.9% 1,000 ML IV STA (17:00)
[2018-10-03] MEDS ORDERED: MECLIZINE 12.5 MG TAB PO ONE ×2 (17:00→19:30)
[2018-10-03] MEDS ORDERED: ONDANSETRON 4 MG INJ IV STA (17:36)
--- NOTE | 2018-10-03 17:36 | ERD ---
ER Documentation Chief Complaint Chief Complaint Dizziness started in am worse with movement relieved by laying down HPI This is a 87-year-old female who is complaining of room spinning. The patient is stating that she had the same thing a few weeks ago and she is had a chronic recurrence of this in the past. She says she woke up this morning and got out of bed and she got out of the room was moving around her. She has nausea but no vomiting. She says that she remains still the symptoms go away but if she moves her head the symptoms return. No headache no focal neurological complaints no numbness weakness no vision or speech change ROS All systems reviewed and are negative except as per history of present illness. Medications Home Meds Active Scripts Ondansetron (Ondansetron Odt) 4 Mg Tab.rapdis, 4 MG PO Q6H PRN for NAUSEA AND/OR VOMITING, #10 TAB Prov:HUGH HI DO 09/08/18 Meclizine Hcl* (Antivert*) 12.5 Mg Tab, 25 MG PO Q6H PRN for DIZZINESS, #20 TAB Prov:HUGH HI DO 09/08/18 Reported Medications Aripiprazole (Aripiprazole) 2 Mg Tablet, 1 TAB ORAL DAILY 09/08/18 Fluoxetine Hcl* (Fluoxetine Hcl*) 20 Mg Capsule, 20 MG PO DAILY, CAP 08/22/18 Fenofibrate, Micronized* (Fenofibrate*) 160 Mg Tablet, 160 MG PO DAILY, TAB 08/22/18 Lisinopril* (Lisinopril*) 20 Mg Tablet, 20 MG PO DAILY, #30 TAB 08/22/18 Allergies Allergies: Coded Allergies: No Known Allergy (Unverified , 09/08/18) PMhx/Soc History of Surgery: No (Hysterectomy, Cholecystectomy, Appendectomy) Anesthesia Reaction: No Hx Neurological Disorder: No Hx Respiratory Disorders: No Hx Cardiac Disorders: Yes (HTN) Hx Psychiatric Problems: Yes (Depression) Hx Miscellaneous Medical Probl: No Hx Alcohol Use: No Hx Substance Use: No Hx Tobacco Use: No Smoking Status: Never smoker FmHx Family History: No coronary disease Physical Exam Vitals Vital Signs Date Temp Pulse Resp B/P (MAP) Pulse Ox O2 O2 Flow FiO2 Time Delivery Rate 10/03/18 105 18 120/51 100 Room Air 18:26 (74) 10/03/18 98.4 115 18 155/71 99 Room Air 17:33 (99) 10/03/18 98.2 122 22 165/70 98 16:38 (101) 10/03/18 98.2 116 18 158/72 99 Room Air 16:38 (100) Physical Exam Const: Well-developed, well-nourished Head: Atraumatic, normocephalic Eyes: Normal Conjunctiva, PERRLA, EOMI, normal sclera, no nystagmus ENT: Normal External Ears, Nose and Mouth, moist mucus membranes. Neck: Full range of motion. No meningismus, no lymphadenopathy. Resp: Clear to auscultation bilaterally, no wheezing, rhonchi, rales Cardio: Regular rate and rhythm, no murmurs, S1 S2 present Abd: Soft, non tender x 4, non distended. Normal bowel sounds, no guarding or rebound, no pulsitile abdominal masses or bruits Skin: No petechiae or rashes, no ecchymosis , no maculopapular rash Back: No midline or flank tenderness Ext: No cyanosis, or edema, FROM x 4, normal inspection, neurovascularly intact x 4 Neur: Awake and alert, STR 5/5 x 4, sensation intact x 4, no focal findings, cerebellum intact Psych: Normal Mood and Affect Results 24 hrs Current Medications Medications Dose Sig/Hunter Start Time Status Last (Trade) Ordered Route PRN Stop Time Admin Dose Reason Admin Sodium 1,000 ml @ Q1H STAT 10/03/18 DC 10/03/18 Chloride 1,000 mls/hr IV 17:00 10/03/18 17:29 17:59 Meclizine 25 mg ONCE ONCE 10/03/18 DC 10/03/18 HCl PO 17:00 10/03/18 17:13 (Antivert) 17:03 Ondansetron 4 mg ONCE STAT 10/03/18 DC 10/03/18 HCl (Zofran IV 17:36 10/03/18 17:43 Inj) 17:38 Meclizine 25 mg ONCE ONCE 10/03/18 10/03/18 HCl PO 19:30 10/03/18 19:13 (Antivert) 19:31 Procedures/[place] [address] Radiology Main Line: [phone] DIAGNOSTIC IMAGING REPORT Patient: ADRYAN : 1930 Age: 87 Sex: F [id number] [id number] DOS: 10/03/18 1700 Ordering MD: HUGH HI DO Location: E/R Room/Bed: PROCEDURE: CT HEAD NON CONTRAST CLINICAL INDICATION: Vertigo TECHNIQUE: Utilizing the multi-slice spiral CT scanner, multiple images were obtained through the brain without intravenous contrast. Automatic exposure control was utilized as dose lowering technique.DICOM images available One of more of the following dose reduction techniques were utilized: -automatic exposure control.-adjustment of the mA and/or kV according to patient size. -Use of iterative reconstruction technique. Radiation Dose: CTDI is 38.29 mGy. DLP is 634.23 mGy-cm. COMPARISON: 09/08/2018 CT head FINDINGS: Ventricular system appears unremarkable. Periventricular low density area suggestive of deep white matter ischemic changes. Proportionate overlying brain atrophy noted. No acute intracranial bleed, midline shift, acute extra-axial collection noted. Brain stem appears unremarkable. Atrophy of the posterior fossa is seen. And globe, retrobulbar area appears unremarkable. Visualized portions of the paranasal sinuses are clear. Calcification intracranial ICA noted at the level of cavernous sinus. Symmetric pneumatization of the mastoid air cells is noted. Findings are unchanged from prior study para IMPRESSION: NO ACUTE INTRACRANIAL BLEED NOTED. IF FURTHER WORKUP IS DESIRED, FOLLOW-UP MRI MAY BE HELPFUL. RPTAT: AAOO Physician Flo Date Time Electronically viewed and signed by Physician Flo on 10/03/2018 17:43 MB/ CC: HUGH HI DO [id number] The patient received some Antivert and she still symptomatic to repeated the dose. Patient has been observed here for a few hours and we tried ambulating her. She is able to stand and walk carefully but has to hold onto the wall she can fall. Patient lives alone I am concerned for her safety for falling and having a head injury or hip injury. She does not want to go home and feels more comfortable being observed. I think this is reasonable considering that she still symptomatic after 2 rounds of Antivert and some IV fluids. I will draw some basic labs and admit Departure Diagnosis: Primary Impression: Vertigo Condition: Stable HUGH HI DO Oct 03, 2018 17:36
[2018-10-04 00:13] VITALS: BP 147/60; PULSE 86; RESP 18
== END 2018-10-04 00:19 | disposition home or self-care (01) ==
LOC: E/R 16:29
DX: R42 Dizziness and giddiness (principal); R11.0 Nausea; R40.2142 Coma scale, eyes open, spontaneous, at arrival to emergency department; R40.2362 Coma scale, best motor response, obeys commands, at arrival to emergency department; R40.2252 Coma scale, best verbal response, oriented, at arrival to emergency department; I10 Essential (primary) hypertension
CPT/HCPCS: 36415; 70450; 80053; 85025; 96361; 96374; 99285; J2405; J7030